=== PATIENT | male | born 1955 | race Caucasian/White ===

== ENCOUNTER 2022-03-08 15:01 | Emergency (ER) | payer MEDICARE, SELFPAY ==
[2022-03-08 15:57] VITALS: BP 139/73; PULSE 72; RESP 18; TEMP 36.7; O2SAT 95; BMI 47.2
--- NOTE | 2022-03-08 16:08 | HMH.EDUTC ---
[facility] Disposition Clinical Impression: Bronchitis Sinusitis Qualifiers: Sinusitis location: unspecified location Chronicity: acute Recurrence: non-recurrent Qualified Code(s): J01.90 - Acute sinusitis, unspecified Disposition: Home, Self-Care Condition on Discharge: Good Instructions: DI for Sinusitis Additional Instructions: Drink plenty of fluids. Take tylenol or ibuprofen for pain or fever. Take the medications as directed. Follow up with your regular doctor. GO TO THE ER FOR ANY WORSENING SYMPTOMS Don't start the oral steroids until tomorrow, since you had the shot here today. Prescriptions: Benzonatate [Benzonatate 100mg cap] 100 mg PO TIDP PRN #30 cap PRN Reason: Cough [facility]: [facility] methylPREDNISolone [Medrol] 4 mg PO DIRECTED 6 Days #21 packet Transmission Status: [facility] guaiFENesin [Mucinex 600mg tablet] 1 - 2 tab PO BIDP PRN #30 tab PRN Reason: Congestion Transmission Status: [facility] Azithromycin [Z-Fidencio 250mg Tab*] 250 mg PO UD DOSE PK #6 tab Transmission Status: [facility] Referrals: Provider,Referral, MD [Primary Care Provider] - Time of Disposition: 16:30 Medical Decision Making - Medical Records Medical records reviewed: No: I reviewed the patient's medical records. - [place] Inquiry Pt receiving controlled substance: No Vital Signs: 03/08/22 15:57 03/08/22 16:51 Temperature 98.1 F 98.1 F Temperature Source Oral Pulse Rate 72 Pulse Rate [Left] 72 Respiratory Rate 18 18 Blood Pressure 139/73 Blood Pressure [Right Arm] 139/73 Blood Pressure Mean [Right Arm] 95 02 Sat by Pulse Oximetry 95 Orders (Tests/Meds): ED MEDICATIONS Discontinued Medications Generic Name Dose Route Start Last Admin Trade Name Freq PRN Reason Stop Dose Admin Methylprednisolone Sodium Succinate 125 mg 03/08/22 16:25 03/08/22 16:41 Methylprednisolone Sod Succ 125mg Vial IM 03/08/22 16:26 125 mg ONCE ONE Administration [facility] HPI - General Stated complaint: congestion Time Seen by Provider: 03/08/22 16:09 Mode of Arrival: Ambulatory Source of Information: Patient Limitations: No Limitations Description of Symptoms (Recalled from Triage Doc. by RN): pt c/o sinus pressure/congestion and a [place] x2 wks. HEENT Symptoms (Recalled from RN notes): Yes Resp Symptoms (Recalled from RN notes): No Skin Symptoms (Recalled from RN notes): No MS Symptoms (Recalled from RN notes): No Functional Status (Recalled from RN notes): wnl - History of Present Illness Provider Complaint: He states that he has had chest congestion, nonproductive cough and sinus congestion for the past 2 weeks. - Related Data Previous Rx's Medication Instructions Recorded Azithromycin [Z-Fidencio 250mg Tab*] 250 mg PO UD DOSE PK #6 tab 03/08/22 Benzonatate [Benzonatate 100mg 100 mg PO TIDP PRN #30 cap 03/08/22 cap] guaiFENesin [Mucinex 600mg tablet] 1 - 2 tab PO BIDP PRN #30 tab 03/08/22 methylPREDNISolone [Medrol] 4 mg PO DIRECTED 6 Days #21 03/08/22 packet Allergies Allergy/AdvReac Type Severity Reaction Status Date / Time Penicillins Allergy Unknown I-HIVES Unverified 11/08/17 15:00 CLASS: 24:04 - Cardiac Drugs Allergy Unknown Uncoded 11/08/17 15:00 - Worker's Comp Is this a Worker's Comp case?: No [facility] History - Hepatitis A Screen Drug use history?: No High risk sexual behaviors?: No History of sexually transmitted infection?: No Currently employed?: No Childcare worker?: No Do you have indoor plumbing?: Yes Do you have electricity?: Yes Attestation statement:: This patient has been screened for Hepatitis A risk factors. I have reviewed the patient's past medical history: Yes ROS Obtained: Yes All systems reviewed & no additional complaints - Constitutional Constitutional: Denies chills, Denies fever(s), Reports poor appetite, Reports mal
[2022-03-08 16:51] VITALS: BP 139/73; PULSE 72; RESP 18; TEMP 36.7
== END 2022-03-08 16:52 | disposition home or self-care (01) ==
LOC: UTC 15:05
PROVIDERS: Emergency Provider Nurse Practitioner Family
DX: J01.90 Acute sinusitis, unspecified (principal); Z79.51 Long term (current) use of inhaled steroids; Z88.0 Allergy status to penicillin
CPT/HCPCS: 96372; 99213; G0463

== ENCOUNTER 2022-03-15 12:16 | Emergency (ER) | payer MEDICARE, SELFPAY ==
[2022-03-15 12:17] VITALS: BP 158/93; PULSE 71; RESP 19; TEMP 36.5; O2SAT 96; BMI 45.1
--- NOTE | 2022-03-15 14:20 | HMH.EDUTC ---
[facility] [place] Disposition Clinical Impression: Sinusitis Qualifiers: Sinusitis location: unspecified location Chronicity: unspecified Qualified Code(s): J32.9 - Chronic sinusitis, unspecified Disposition: Home, Self-Care Condition on Discharge: Good Instructions: Sinusitis, DI for Sinusitis, Doxycycline Additional Instructions: *Monitor Temp, Over the counter Motrin or Tylenol as directed/as needed Tylenol every 4 hours and Motrin every 6 hours (as long as your family doctor has told you that you can take it) for fever or pain. and straight to ER if unable to lower temp less than 101.0 after medication given *Warm salt water gargles may help to soothe the throat *Throat Lozenges *Warm fluids like tea with honey may help to soothe the throat *Sleep elevated *Humidifier/Vaporizer *Flonase 2 sprays in each nostril daily but be aware that it may take 2-3 days before you notice improvement Take medication as prescribed Return if needed Follow up IMMEDIATELY for new or worsening symptoms or no Noticeable improvement over the next 48-72 hours. 911 for difficulty breathing or swallowing Prescriptions: Doxycycline Monohydrate [Doxycycline Dickey 100mg Tab] 100 mg PO BID 7 Days #14 tab Transmission Status: Pending to [email or web address] Fluticasone Propionate [Flonase 50mcg nasal spray 16gm] 1 spr NS DAILY #1 each Transmission Status: Pending to [email or web address] Referrals: Provider,Referral, MD [Primary Care Provider] - As needed Time of Disposition: 14:39 Medical Decision Making - [place] Inquiry Pt receiving controlled substance: No Fortino was queried for this patient: No Vital Signs: 03/15/22 12:17 Temperature 97.7 F Temperature Source Oral Pulse Rate [Right Radial] 71 Respiratory Rate 19 Blood Pressure [Right Arm] 158/93 H Blood Pressure Mean [Right Arm] 114 Blood Pressure Source [Right Arm] Automatic Cuff Blood Pressure Position [Right Arm] Sitting 02 Sat by Pulse Oximetry 96 Oxygen Delivery Method Room Air [facility] [place] HPI - General Stated complaint: cough, congestion, sinus pressure Time Seen by Provider: 03/15/22 14:20 Mode of Arrival: Ambulatory Source of Information: Patient Limitations: No Limitations Description of Symptoms (Recalled from Triage Doc. by RN): Pt stated that he was here last week and had a sinus infection. He stated that he now has sinus pressure behind his right eye. He also still has the cough. HEENT Symptoms (Recalled from RN notes): Yes Resp Symptoms (Recalled from RN notes): No Skin Symptoms (Recalled from RN notes): No MS Symptoms (Recalled from RN notes): No Functional Status (Recalled from RN notes): n/a - History of Present Illness Provider Complaint: Patient states that he was seen last week for sinus infection States that he has took all the medication but it has not helped State that he is still having pain and pressure in his sinuses especially behind right eye and coughing up yellowish brown mucus when he wakes up that is draining in his throat State that today he was still not feeling better so he came in to get it checked - Related Data Previous Rx's Medication Instructions Recorded Doxycycline Monohydrate 100 mg PO BID 7 Days #14 tab 03/15/22 [Doxycycline Dickey 100mg Tab] Fluticasone Propionate [Flonase 1 spr NS DAILY #1 each 03/15/22 50mcg nasal spray 16gm] Allergies Allergy/AdvReac Type Severity Reaction Status Date / Time Penicillins Allergy Unknown I-HIVES Verified 03/15/22 13:55 CLASS: 24:04 - Cardiac Drugs Allergy Unknown Uncoded 11/08/17 15:00 - Worker's Comp Is this a Worker's Comp case?: No [facility] History - Hepatitis A Screen Drug use history?: No High risk sexual behaviors?: No History of sexually transmitted infection?: No Currently employed?: No Childcare worker?: No Do you have indoor plumbing?: Yes Do you have electricity?: Yes Attestation statement:: This patient has been screened for Hepatitis A risk factors. I have r
[2022-03-15 14:57] VITALS: BP 158/93; PULSE 71; RESP 19; TEMP 36.5; O2SAT 96
== END 2022-03-15 14:57 | disposition home or self-care (01) ==
PROVIDERS: Emergency Provider Nurse Practitioner
DX: J32.9 Chronic sinusitis, unspecified (principal)
CPT/HCPCS: G0463; 99212